=== PATIENT | male | born 1995 | race Caucasian/White ===

== ENCOUNTER 2025-08-15 07:45 | Emergency (ER) | payer OTHER, SELFPAY ==
[2025-08-15 07:53] VITALS: O2SAT 98
[2025-08-15 07:54] VITALS: BP 133/88; PULSE 97; O2SAT 99
[2025-08-15 08:00] VITALS: BP 133/83; PULSE 97; O2SAT 100
[2025-08-15 08:01] VITALS: BP 133/88; PULSE 101; RESP 17; TEMP 37.1; O2SAT 99
--- NOTE | 2025-08-15 08:03 | ED_ITS ---
HPI - Skin/Abscess/Foreign Bdy General Chief complaint: Dental/Oral Stated complaint: Swelling in face/pain in jaw Time Seen by Provider: 08/15/25 07:55 History of Present Illness HPI narrative: Patient is a healthy 30-year-old male presenting today with right facial swelling. He has only noticed a little bit last night but this morning it is really swollen. No difficulty swallowing no fever no redness no tooth pain. No prior infections like this before. Related Data Allergies Allergy/AdvReac Type Severity Reaction Status Date / Time No Known Drug Allergies Allergy Verified 08/15/25 08:04 Patient History Social History Smoking Status: Current some day smoker Exam Initial Vital Signs Initial Vital Signs: Vital Signs Pulse Oximetry 98 08/15/25 07:53 GENERAL: Well-appearing, well-nourished and in no acute distress. HEENT: Head atraumatic,EOMI, pupils reactive, right a parotid swelling no airway compromise CARDIOVASCULAR: Regular rate and rhythm without murmurs, rubs or gallops. RESPIRATORY: Breath sounds equal bilaterally, no wheezes rales or rhonchi. ABDOMEN: Soft, nontender. Normoactive bowel sounds all 4 quadrants. No guarding or rebound. EXTREMITIES: Normal range of motion, no clubbing or edema. Neurovascularly intact NEUROLOGICAL: Alert and oriented x4.Normal gait and speech. Cranial nerves II through XII grossly intact. SKIN: Warm, dry, no laceration, no petechiae, no rashes or lesions. Course Orders Ordered: ED Orders 08/15/25 08:04 CT facial bones w con Stat 08/15/25 08:19 CBC Auto Diff [Complete Blood Count AUTO DIFF] Stat CMP [Comprehensive Metabolic Panel] Stat Discontinued Medications Ketorolac Tromethamine (Ketorolac 30 Mg/Ml Vial) 15 mg IV NOW ONE Stop: 08/15/25 08:05 Last Admin: 08/15/25 08:25 Dose: 15 mg Documented By: LIZZETH Vital Signs Vital signs: Vital Signs - 8 hr 08/15/25 07:53 08/15/25 07:54 08/15/25 07:54 Temperature Pulse Rate 97 H Respiratory Rate Blood Pressure 133/88 Pulse Oximetry 98 99 Oxygen Delivery Method 08/15/25 08:00 08/15/25 08:00 08/15/25 08:01 Temperature 98.7 F Pulse Rate 97 H 101 H Respiratory Rate 17 Blood Pressure 133/83 133/88 Pulse Oximetry 100 99 Oxygen Delivery Method Room Air 08/15/25 08:56 Temperature Pulse Rate 91 H Respiratory Rate 14 Blood Pressure 118/89 Pulse Oximetry 98 Oxygen Delivery Method Room Air MDM - Skin/Abscess/Foreign Bdy Lab Data 08/15/25 08:19 08/15/25 08:19 Labs: Lab Results 08/15/25 Range/Units 08:19 WBC 8.0 (4.5-11.0) X10^3/uL RBC 5.04 (4.5-5.9) X10^6/uL Hgb 14.8 (13.5-17.5) g/dL Hct 42.5 (41-53) % MCV 84.4 (80-100) fL MCH 29.4 (26-34) PG MCHC 34.9 (30-36) % RDW 13.2 (11.6-14.8) % Plt Count 182 (150-400) X10^3/uL Neut % (Auto) 84.1 H (50-75) % Lymph % (Auto) 8.3 L (25-40) % [place] % (Auto) 7.1 (3-14) % Eos % (Auto) 0.4 L (2-4) % Baso % (Auto) 0.1 (0-2) % Neut # (Auto) 6800 (6135-0750) /uL Lymph # (Auto) 700 L (4126-4610) /uL [place] # (Auto) 600 (0-900) /uL Eos # (Auto) 0 (0-450) /uL Baso # (Auto) 0 (0-100) /uL Sodium 138 (137-145) mmol/L Potassium 4.1 (3.4-5.1) mmol/L Chloride 102 (98-107) mmol/L Carbon Dioxide 25 (22-32) mmol/L BUN 11 (9-20) mg/dL Creatinine 0.91 (0.66-1.25) mg/dL Estimated GFR > 60 (>60) mL/min BUN/Creatinine Ratio 12.1 (6-22) Glucose 102 H (70-99) mg/dL Calcium 9.2 (8.4-10.2) mg/dL Total Bilirubin 1.5 H (0.2-1.3) mg/dL AST 29 (17-59) IU/L ALT 21 (<50) IU/L Alkaline Phosphatase 62 (38-126) U/L Total Protein 8.0 (6.3-8.2) g/dL Albumin 5.0 (3.5-5.0) g/dL Globulin 3.0 (1.7-4.1) g/dL Albumin/Globulin Ratio 1.7 (1.0-2.8) Imaging Data CT face: Radiologist's Impression: PROCEDURE: CT FACIAL BONES W CON INDICATIONS: right sided swelling TECHNIQUE: After the administration of intravenous contrast, 2.5 mm axial sections acquired from the mid-neck to the frontal sinuses, with coronal and sagittal reformats. For radiation dose reduction, the following was used: automated exposure control, adjustment of mA and/or kV according to patient size. COMPARISON: None. FINDINGS: Image quality: Diagnostic Bones: No displaced fracture of the zygoma, pterygoid plates, mandible, or temporal bones. There is a left medial orbital wall fracture which is age-indeterminate. Nasal bone appears intact. Slight leftward nasal septum deviation. No high-grade dental disease is noted. Sinuses and mastoids: [id number] frontal and ethmoid mucosal thickening. Soft tissues: Moderate edema is seen surrounding the right parotid gland and submandibular gland. No rim enhancing fluid collection. Prominent cervical lymph nodes are seen, which may be reactive. Brain: Unremarkable, partially visualized IMPRESSION: No rim enhancing abscess is identified. Moderate edema is seen surrounding the right face and neck, surrounding the parotid and submandibular glands, possibly sialoadenitis and/or cellulitis Dictated by: Torsten Napier M.D. on 08/15/2025 at 8:31 MDM Narrative Medical decision making narrative: Patient is a healthy 30-year-old male presenting today with right-sided facial swelling. There is no erythema vitals are stable. No airway compromise. Blood work has been reviewed he has no leukocytosis electrolytes are within normal limits. CT does show moderate edema surrounding right face and neck surrounding the parotid and submandibular glands. Suspect sialoadenitis, there is no salivary stone. At this time supportive care only. No antibiotics. Discharge Plan Departure Patient Disposition: Home Clinical Impression: Acute mumps sialadenitis Instructions: Parotitis Activity Restrictions/Additional Instructions: *You have been diagnosed with sialoadenitis *What to do: At this time no need for antibiotics. Try warm compresses. Tylenol Motrin as needed for pain. *Continue to take medications as directed Tylenol Motrin *Follow up with your primary care provider in 2-3 days or call [phone] *Return to ER if you should have increasing pain swelling redness swallowing difficulty or any new, worsening or concerning symptoms Stand Alone Forms: Patient Portal/API, Work Release Note
[2025-08-15 08:25] LABS: Add Manual Diff / Slide Review NO; Hematocrit 42.5 % (41-53); Hemoglobin 14.8 g/dL (13.5-17.5); Lymphocytes Absolute Auto 700 /uL (1100-4500); Mean Corpuscular HGB Conc 34.9 % (30-36); Mean Corpuscular Hemoglobin 29.4 PG (26-34); Mean Corpuscular Volume 84.4 fL (80-100); Platelet Count 182 X10^3/uL (150-400)
[2025-08-15] MEDS: KETOROLAC 30 MG/ML VIAL 15 MG IV (08:25)
[2025-08-15 08:38] LABS: Alanine Aminotransferase 21 IU/L (<50); Albumin 5.0 g/dL (3.5-5.0); Albumin Globulin Ratio 1.7 (1.0-2.8); Alkaline Phosphatase 62 U/L (38-126); Blood Urea Nitrogen 11 mg/dL (9-20); Calcium 9.2 mg/dL (8.4-10.2); Carbon Dioxide 25 mmol/L (22-32); Chloride 102 mmol/L (98-107); Estimated Glomerular Filt Rate > 60 mL/min (>60); Globulin 3.0 g/dL (1.7-4.1); Glucose 102 mg/dL (70-99); HEMOLYSIS < 15 (0-50); Potassium 4.1 mmol/L (3.4-5.1); Sodium 138 mmol/L (137-145); Total Protein 8.0 g/dL (6.3-8.2)
[2025-08-15 08:56] VITALS: BP 118/89; PULSE 91; RESP 14; O2SAT 98
== END 2025-08-15 09:04 | disposition home or self-care (01) ==
PROVIDERS: Emergency Provider Emergency Medicine
DX: B26.89 Other mumps complications (principal)
CPT/HCPCS: 36415; 70487; 80053; 85025; 96374; 99284; J1885; Q9967